=== PATIENT | male | born 1960 | race Two or more races ===

== ENCOUNTER 2019-01-14 18:01 | Emergency (ER) | payer SELFPAY ==
[~2019-01-14] VITALS: Ht 165.1 cm; Wt 89.4 kg
--- NOTE | 2019-01-14 18:17 | NUR ---
AAOX3, BIBA RA 80 "Fall Witnesses stated He Lost footing in truck. Fell on R side +Hard hat but ended w/ Bump on head/pain on R hand/wrist". RR is even and unlabored with NAD noted. Skin is warm and dry. Awaiting md for eval.
--- NOTE | 2019-01-14 18:42 | NUR ---
DR NUNEZ AT BEDSIDE
--- NOTE | 2019-01-14 19:03 | NUR ---
PATIENT WHEELED OUT VIA GURNEY FOR CT SCAN
[2019-01-14] MEDS ORDERED: ACETAMINOPHEN ES 500 MG TABLET ONE (19:06)
[2019-01-14] MEDS ORDERED: IBUPROFEN 600 MG TABLET PO ONE (19:06)
[2019-01-14] MEDS: IBUPROFEN 600 MG TABLET PO ONE (19:21)
[2019-01-14] MEDS: ACETAMINOPHEN ES 500 MG TABLET PO ONE (19:22)
--- NOTE | 2019-01-14 19:30 | NUR ---
REPORT GIVEN TO RUSS RODRIGUEZ FOR REBECCA
--- NOTE | 2019-01-14 20:58 | NUR ---
Patient discharged to home in stable condition. Rx and Written and verbal after care instructions given. Patient/ and family verbalized understanding of instruction. pt was given a copy of 's report got occupational injury and was advised to f/u w/ [facility] w/ understanding . pt walked out w. an steady gait
[2019-01-14 21:03] VITALS: BP 136/77
== END 2019-01-14 21:04 | disposition home or self-care (01) ==
LOC: ER 18:04
DX: S66.811A Strain of other specified muscles, fascia and tendons at wrist and hand level, right hand, initial encounter (principal); S00.83XA Contusion of other part of head, initial encounter; S20.211A Contusion of right front wall of thorax, initial encounter; F10.10 Alcohol abuse, uncomplicated; Y90.9 Presence of alcohol in blood, level not specified; Z98.890 Other specified postprocedural states; W18.09XA Striking against other object with subsequent fall, initial encounter; Y93.89 Activity, other specified; Y92.89 Other specified places as the place of occurrence of the external cause; Y99.8 Other external cause status
CPT/HCPCS: 70450-TC; 70486-TC; 71046; 72125-TC; 73090-TC; 73110